=== PATIENT | male | born 1995 | race African-American/Black ===

== ENCOUNTER → 2019-11-23 | Outpatient (CLI) | payer OTHER ==
--- NOTE | 2019-11-23 09:33 | REP ---
Right small finger series: Four views. History: Jamming injury. Findings: There is soft-tissue swelling about the PIP joint. No fracture is visible. No subluxation seen. Impression: Soft-tissue swelling about the PIP joint. No fracture or subluxation seen. Electronically Signed by Ze Yadav MD 11/23/2019 09:25 A
== END ==
LOC: M RAD 08:53
PROVIDERS: ATTEND Surgery
DX: S69.81XA Other specified injuries of right wrist, hand and finger(s), initial encounter (principal); M79.89 Other specified soft tissue disorders; W23.1XXA Caught, crushed, jammed, or pinched between stationary objects, initial encounter